=== PATIENT | male | born 1975 | race American Indian/Alaskan Native ===

== ENCOUNTER 2017-01-30 06:39 | Emergency (ER) | payer BC ==
[2017-01-30 06:54] VITALS: RESP 20; TEMP 99.3; O2SAT 99
[2017-01-30] MEDS ORDERED: Sodium Chloride 0.9% 1,000 ML IV ONE (07:21)
--- NOTE | 2017-01-30 07:28 | C.PDOC ---
History Of Present Illness 41 y/o male presents to the ED with complains of abdominal pain since last night after eating dinner. Patient reports sharp epigastric abdominal pain around 2200 last night and has had 10 episodes of vomiting since. Last BM was yesterday, which was normal. Denies diarrhea fever, chills, chest pain, abdominal bloating, belching or any other complaints. History of gastric sleeve 2011, appendectomy young age. Time Seen by Provider: 01/30/17 07:13 Chief Complaint (Nursing): Abdominal Pain History Per: Patient History/Exam Limitations: no limitations Onset/Duration Of Symptoms: Hrs Current Symptoms Are (Timing): Still Present Context: Food Severity: Moderate Location Of Pain/Discomfort: Epigastric Radiation Of Pain To:: None Quality Of Discomfort: Sharp Associated Symptoms: Nausea, Vomiting. denies: Fever, Diarrhea, Chest Pain Alleviating Factors: None Last Bowel Movement: Yesterday Recent travel outside of the [place]: No Past Medical History Reviewed: Historical Data, Nursing Documentation, Vital Signs Vital Signs: Last Vital Signs Temp 99.3 F 01/30/17 08:57 Pulse 82 01/30/17 08:57 Resp 20 01/30/17 08:57 BP 150/88 01/30/17 08:57 Pulse Ox 99 01/30/17 08:57 - Medical History PMH: No Chronic Diseases Surgical History: Appendectomy Other Surgeries: Gastric sleeve 2011 Family History: States: Unknown Family Hx - Social History Hx Alcohol Use: No Hx Substance Use: No - Immunization History Hx Tetanus Toxoid Vaccination: No Hx Influenza Vaccination: No Hx Pneumococcal Vaccination: No Review Of Systems Constitutional: Negative for: Fever, Weakness, Malaise Cardiovascular: Negative for: Chest Pain, Palpitations Respiratory: Negative for: Cough, Shortness of Breath Gastrointestinal: Positive for: Nausea, Vomiting, Abdominal Pain. Negative for : Diarrhea, Constipation, Rectal Pain Musculoskeletal: Negative for: Neck Pain, Arm Pain, Back Pain, Leg Pain Skin: Negative for: Rash Neurological: Negative for: Weakness, Numbness, Headache, Dizziness Physical Exam - Physical Exam Appears: Non-toxic, No Acute Distress, Other (obese) Skin: Warm, Dry, No Rash Head: Atraumatic, Normacephalic Eye(s): bilateral: Normal Inspection, EOMI Neck: Normal ROM, Supple Chest: Symmetrical Cardiovascular: Rhythm Regular, No Murmur Respiratory: Normal Breath Sounds, No Rales, No Rhonchi, No Wheezing Gastrointestinal/Abdominal: Bowel Sounds, Soft, No Tenderness, No Mass, No Distention, No Ascites Back: Normal Inspection Extremity: Bilateral: Atraumatic, Normal Color And Temperature, Normal ROM Neurological/Psych: Oriented x3, Normal Speech Gait: Steady ED Course And Treatment - Laboratory Results Result Diagrams: 01/30/17 08:06 01/30/17 08:06 O2 Sat by Pulse Oximetry: 99 (on room air) Pulse Ox Interpretation: Normal - Other Rad obstructive series X-Ray: Interpreted by Me, Viewed By Me Interpretation: normal chest, normal gas pattern, no evidence of mechanical bowel obstruction or free air. Medical Decision Making Medical Decision Making: Plan: * labs * XR obstructive series * UA * pepcid, zofran * IV fluids Re-Eval: Upon reevaluation, patient has no fever and reports feeling better. He is no longer having any abdominal pain and was able to tolerate fluids in the ER. Abdomen remains soft and nontender. Patient feels comfortable going home and will be discharged with rx zofran. I advised patient to try clear liquids and proceed as tolerated. Instruct patient to follow up with primary physician or clinic in few days or return to ER for any worsening symptoms. Disposition Counseled Patient/Family Regarding: Diagnosis, Need For Followup, Rx Given - Disposition Referrals: [facility] [Outside] [facility] [Outside] Disposition: HOME/ ROUTINE Disposition Time: 08:45 Condition: STABLE Additional Instructions: Drink fluids to prevent dehydration, gatorade is recommended. Take Zofran as prescribed. Try low-fat diet with increase in fluids such as sport drink, gelatin. Prescriptions: Ondansetron ODT [Zofran ODT] 1 odt PO BID PRN #10 odt PRN Reason: Nausea/Vomiting Instructions: Acute Nausea and Vomiting (ED) - POA Present On Arrival: None - Clinical Impression Clinical Impression: Vomiting, Epigastric abdominal pain - PA / MILK TESTER / Resident Statement MD/DO has reviewed & agrees with the documentation as recorded. - Scribe Statement The provider has reviewed the documentation as recorded by the Aspen Pickard All medical record entries made by the Aspen were at my direction and personally dictated by me. I have reviewed the chart and agree that the record accurately reflects my personal performance of the history, physical exam, medical decision making, and the department course for this patient. I have also personally directed, reviewed, and agree with the discharge instructions and disposition.
[2017-01-30] MEDS ORDERED: Sodium Chloride 0.9% 1,000 ML ONE (07:39)
[2017-01-30 07:51] LABS: RBC URINE < 1 /hpf (0-3); URINE BILIRUBIN NEGATIVE (NEGATIVE); URINE BLOOD NEGATIVE (NEGATIVE); URINE COLOR Yellow (YELLOW); URINE GLUCOSE (UA) NORMAL (Normal); URINE KETONE NEGATIVE (NEGATIVE); URINE LEUKOCYTE ESTERASE NEG Leu/uL (Negative); URINE PROTEIN 1+ mg/dL (NEGATIVE); URINE UROBILINOGEN NORMAL mg/dL (0.2-1.0); WBC URINE 1 /hpf (0-5)
[2017-01-30 08:11] LABS: BASO % 0.2 % (0.0-2.0); EOS # 0.1 K/uL (0.0-0.7); EOS % 1.2 % (0.0-4.0); HEMATOCRIT 46.4 % (35.0-51.0); LYMPH # 0.3 K/uL (1.0-4.3); LYMPH % 3.5 % (20.0-40.0); MEAN CELL VOLUME 88.3 fL (80.0-94.0); MEAN CORPUSCULAR HGB CONC 32.9 g/dL (33.0-37.0); MEAN PLATELET VOLUME 9.5 fL (7.2-11.7); MONO # 0.2 K/uL (0.0-0.8); MONO % 3.3 % (0.0-10.0); PLATELET COUNT 175 K/uL (130-400); RED CELL DISTRIBUTION WIDTH 14.1 % (11.5-14.5); WHITE BLOOD COUNT 7.2 K/uL (4.8-10.8)
[2017-01-30 08:21] LABS: CHLORIDE 104 mmol/L (98-107)
[2017-01-30 08:22] LABS: POTASSIUM 4.7 mmol/L (3.6-5.2); SODIUM 139 mmol/L (132-148)
[2017-01-30 08:24] LABS: ALB/GLOB RATIO 1.3 (1.0-2.1); ALKALINE PHOSPHATASE 112 U/L (38-126); ALT/SGPT 37 U/L (21-72); AST/SGOT 33 U/L (17-59); BLOOD UREA NITROGEN 16 mg/dL (9-20); CARBON DIOXIDE 22 mmol/L (22-30); GFR AFRICAN-AMERICAN > 60; GLUCOSE,RANDOM 159 mg/dL (75-110); TOTAL PROTEIN 8.1 g/dL (6.3-8.3)
[2017-01-30 08:52] LABS: NEUTROPHIL 85 % (50-75); TOTAL CELLS COUNTED 100
[2017-01-30 08:58] VITALS: BP 150/88; PULSE 82
--- NOTE | 2017-01-30 11:52 | RAD ---
PROCEDURE: Radiographs of the chest and abdomen (obstructive series) HISTORY: abd pain COMPARISON: None available. FINDINGS: Examination limited by habitus. CHEST: The cardiomediastinal silhouette appears within normal limits of size. No focal consolidation, significant pleural effusion, or definite pneumothorax identified.Please note that chest x-ray has limited sensitivity for the detection of pulmonary masses. ABDOMEN AND PELVIS: Overall paucity of bowel gas. Nonspecific bowel gas pattern. No definite free air. Surgical clips within the left upper quadrant. Elevation of the right hemidiaphragm. Degenerative changes. IMPRESSION: Overall paucity of bowel gas with nonspecific bowel gas pattern.
== END 2017-01-30 09:05 | disposition home or self-care (01) ==
LOC: C.ER 06:39
DX: R10.13 Epigastric pain (principal); R11.10 Vomiting, unspecified
CPT/HCPCS: 74022; 80053; 81001; 83690; 85025; 87086; 87181; 96361; 96374; 96375; 99285; J2405; J7040